=== PATIENT | male | born 1960 | race American Indian/Alaskan Native ===

== ENCOUNTER 2017-02-11 00:09 | Inpatient (IN) | payer MEDICARE ==
[2017-02-11 01:06] LABS: Anion Gap 20 mmol/L; BUN/Creatinine Ratio 21.11; Blood Urea Nitrogen 19 mg/dL (9-20); Carbon Dioxide 29 mmol/L (22-30); Chloride 98.6 mmol/L (98-107); Glucose 158 mg/dL (75-100); Potassium 4.5 mmol/L (3.6-5.0); Sodium 143 mmol/L (137-145)
[2017-02-11 01:11] LABS: Basophils % (Auto) 0.6 % (0.0-1.8); Eosinophils % (Auto) 3.3 % (0.0-4.3); Hematocrit 41.8 % (35.5-45.6); Hemoglobin 13.9 gm/dl (11.8-15.2); Mean Corpuscular HGB Conc 33 % (32-34); Mean Corpuscular Hemoglobin 30 pg (28-32); Mean Corpuscular Volume 89 fl (84-94); Platelet Count 124 K/mm3 (140-440); Red Blood Count 4.68 M/mm3 (3.65-5.03); Red Cell Distribution Width 13.5 % (13.2-15.2); White Blood Count 8.9 K/mm3 (4.5-11.0)
[2017-02-11] MEDS ORDERED: ASPIRIN PO ONE (06:06)
[2017-02-11] MEDS ORDERED: NITROSTAT SL ONE (06:06)
--- NOTE | 2017-02-11 06:09 | Emergency Department Report ---
ED Chest Pain HPI - General Chief Complaint: Chest Pain Stated Complaint: CHEST PAIN Time Seen by Provider: 02/11/17 05:59 Source: patient Mode of arrival: Stretcher Limitations: No Limitations - History of Present Illness Initial Comments: 56-year-old male presents emergency Department with chest pain that started since 9:30 PM last night. Patient describes pressure in the center of his chest. Does not radiate. He has shortness of breath with it. Has had a recent stress test in July 2016 for which he says was negative. Denies fevers chills nausea vomiting. -: Sudden Onset: during rest Pain Location: substernal Pain Radiation: none Severity: moderate Severity scale (0 -10): 6 Quality: tightness - Related Data Allergies Allergy/AdvReac Type Severity Reaction Status Date / Time No Known Allergies Allergy Unverified 02/11/17 00:20 Heart Score - HEART Score History: Moderately suspicious EKG: Non-specific Age: 45-65 Risk factors: 1-2 risk factors Troponin: < normal limit HEART Score: 4 ED Review of Systems ROS: Stated complaint: CHEST PAIN Other details as noted in HPI Comment: All other systems reviewed and negative Constitutional: denies: chills, fever Eyes: denies: eye pain, eye discharge, vision change ENT: denies: ear pain, throat pain Respiratory: shortness of breath. denies: cough, wheezing Cardiovascular: chest pain, dyspnea on exertion. denies: palpitations Endocrine: no symptoms reported Gastrointestinal: denies: abdominal pain, nausea, diarrhea Genitourinary: denies: urgency, dysuria Musculoskeletal: denies: back pain, joint swelling, arthralgia Skin: denies: rash, lesions Neurological: denies: headache, weakness, paresthesias Psychiatric: denies: anxiety, depression Hematological/Lymphatic: denies: easy bleeding, easy bruising ED Past Medical Hx - Past Medical History Previous Medical History?: Yes Hx Hypertension: Yes Hx CVA: Yes Hx Seizures: Yes Hx Psychiatric Treatment: Yes (bipolar) Additional medical history: cardiac cath (sometime in 2017) - Surgical History Past Surgical History?: Yes Hx Appendectomy: Yes Additional Surgical History: back surgery, jaw surgery - Social History Smoking Status: Current Every Day Smoker Substance Use Type: None ED Physical Exam - General Limitations: No Limitations General appearance: alert, in no apparent distress - Head Head exam: Present: atraumatic, normocephalic - Eye Eye exam: Present: normal appearance - ENT ENT exam: Present: mucous membranes moist - Neck Neck exam: Present: normal inspection - Respiratory Respiratory exam: Present: normal lung sounds bilaterally. Absent: respiratory distress - Cardiovascular Cardiovascular Exam: Present: regular rate, normal rhythm. Absent: systolic murmur, diastolic murmur, rubs, gallop - GI/Abdominal GI/Abdominal exam: Present: soft, normal bowel sounds - Rectal Rectal exam: Present: deferred - Extremities Exam Extremities exam: Present: pedal edema - Back Exam Back exam: Present: normal inspection - Neurological Exam Neurological exam: Present: alert, oriented X3 - Psychiatric Psychiatric exam: Present: normal affect, normal mood - Skin Skin exam: Present: warm, dry, intact, normal color. Absent: rash ED Course Vital Signs 02/11/17 02/11/17 02/11/17 00:20 03:00 04:00 Temperature 98.1 F Pulse Rate 89 91 H 83 Respiratory 20 16 14 Rate Blood Pressure 128/89 121/82 110/77 O2 Sat by Pulse 97 95 95 Oximetry 02/11/17 02/11/17 02/11/17 05:00 06:00 07:00 Temperature Pulse Rate 83 83 77 Respiratory 13 12 13 Rate Blood Pressure 121/80 120/78 127/82 O2 Sat by Pulse 94 94 96 Oximetry ED Medical Decision Making - Lab Data Result diagrams: 02/11/17 00:25 02/11/17 00:25 Laboratory Results - last 24 hr 02/11/17 02/11/17 02/11/17 00:25 00:25 03:22 WBC 8.9 RBC 4.68 Hgb 13.9 Hct 41.8 MCV 89 MCH 30 MCHC 33 RDW 13.5 Plt Count 124 L Lymph % (Auto) 49.6 H [place] % (Auto) 8.7 H Eos % (Auto) 3.3 Baso % (Auto) 0.6 Lymph # 4.4 [place] # 0.8 Eos # 0.3 Baso # 0.0 Seg Neutrophils % 37.8 L Seg Neutrophils # 3.4 Sodium 143 Potassium 4.5 Chloride 98.6 Carbon Dioxide 29 Anion Gap 20 BUN 19 Creatinine 0.9 Estimated GFR > 60 BUN/Creatinine Ratio 21.11 Glucose 158 H Calcium 10.0 Troponin T < 0.010 < 0.010 - EKG Data -: EKG Interpreted by Me - EKG Data 02/11/17 06:15 Normal sinus rhythm rate of 80 normal axis normal intervals and T-wave inversion in V3 and V4 T-wave flattening in V5 and V6 - Medical Decision Making 56-year-old male here with chest pain and shortness of breath. EKG with nonspecific changes plan chest x-ray aspirin nitroglycerin and reassess. Plan to admit for cardiac rule out. Discuss with hospitalist. Critical care attestation.: If time is entered above; I have spent that time in minutes in the direct care of this critically ill patient, excluding procedure time. ED Disposition Clinical Impression: Chest pain Disposition: OP ADMIT IP TO THIS HOSP Is pt being admited?: Yes Condition: Stable Instructions: Chest Pain (ED) Referrals: PRIMARY CARE, [Primary Care Provider] - 3-5 Days
--- NOTE | 2017-02-11 07:41 | Admit Criteria Form ---
Admission Criteria Documentation: CARDIOLOGY GRG Clinical Indications for Admission to Inpatient Care (Davis/check or initial the applicable condition/criteria) Hospital admission is needed for appropriate care of the patient because of ANY ONE of the following: [ ] I. Hemodynamic instability as indicated by ALL of the following (1)(2)(3) (4)(5)(6)(7)(8)(9)(10) [ ]a) Vital sign abnormality not readily corrected by appropriate treatment with 12-24 hours for ANY ONE: [ ]i) Hypotension that persists despite appropriate treatment (eg, volume repletion) [ ]ii) Tachycardiathat persists despite appropriate tx ( e.g., analgesia, fluids, sedation as indicated [ ]iii) Orthostatic vital sign changes that persists despite appropriate treatment (eg, volume repletion) [ ]b) Vital sign abnormailty that is severe indicated by ANY ONE of the following: [ ]i) Inadequate perfusion indicated by ANY ONE of the following: [ ] 1) Lactic acidosis (> 2 mmol/L) [ ] 2) New abnormal capillary refill (> 3 seconds) [ ] 3) Reduced urine output [ ] 4) New altered mental status [ ] 5) Myocardial Ischemia [ ] 6) Other metabolic acidosis (arterial pH <7.35 ) not otherwise explained. [ ]ii) Mean arterial pressure[A] less than 60 mm Hg [ ]iii) Mean arterial pressure[A] less than 70 mm Hg after 30 minutes of appropriate treatment (eg, fluid resuscitation) [ ]iv) Sustained heart rate greater than 120 beats per minute in adult or child 6 years or older[B] [ ]v) IV inotropic or vasopressor medication required to maintain adequate blood pressure or perfusion [ ] II. Severe heart failure as indicated by ANY ONE of the following(17)(18) [ ]a) Respiratory distress [ ]b) Hypotension [ ]c) Debilitating anasarca refractory to therapy (eg, tissue breakdown with infection)[C](19) [ ]d) Cardiac arrhythmias of immediate concern [ ]e) Myocardial ischemia [ ] III. Cardiac arrhythmias or findings of immediate concern indicated by ANY ONE of the following (21)(22): [ ] a) Heart rhythms that are inherently dangerous or unstable indicated by ANY ONE of the following (23)(24)(25): [ ] i) Resuscitated ventricular fibrillation or cardiac arrest [ ] ii) Ventricular escape rhythm [ ] iii) Sustained ventricular tachycardia (30 seconds or more of ventricular rhythm at greater than 100 beats per minute) [ ] iv) Nonsustained ventricular tachycardia and ANY ONE of the following: [ ] 1) Suspected cardiac ischemia as cause or consequence of ventricular tachycardia [ ] 2) Acute myocarditis [ ] b) Unstable cardiac conduction defects indicated by ANY ONE of the following(25)(26)(27) [ ] i) Type II second-degree atrioventricular block [ ]ii) Third-degree atrioventricular block [ ]iii) New-onset left bundle branch block with suspected myocardial ischemia [ ]c) Any heart rhythm and ANY ONE of the following (23)(24)(28)(29) (30) [ ] i) Continuous long-term ECG monitoring needed (e.g., initiation of drug requiring monitoring for more than 24 hours) [ ] ii) Patient has automatic implanted cardioverter defibrillator that is repeatedly firing, malfunctioning, or in need of immediate adjustment of settings beyond the scope of ambulatory or observation care [ ]d) Heart rhythms of concern due to ANY ONE of the following: [ ] i) Hypotension [ ] ii) Respiratory distress [ ] iii) Association with other significant symptoms (e.g., bradycardia with syncope or ongoing dizziness, supraventricular tachycardia with chest pain (28)(29)(31) [ ] IV. Monitoring for cardiac contusion beyond the scope of observation care needed [A](32)(33)(34) [ ] V. Surgical or device complication (e.g., valve replacement complication , ICD disfunction or pacemaker dysfunction) (49)(50)(51)(52)(53)(54) [ ] . Inpatient palliative care needed. [F](51)(52) Also use Inpatient Palliative Care Criteria [ ] VII. Nonbacterial thrombotic (marantic) endocarditis(43)(44)(55)(56)(57) [X ] VIII. Cardiology condition, symptom, or finding for which emergency and observation care has failed or are not considered appropriate. [ ] IX. Acute valvular disease requiring inpatient as indicated by ANY ONE of the following (40)(41) [ ]a) Acute valvular regurgitation (42) [ ]b) Noninfectious valvulitis (43)(44) [ ]c) Obstructive valve thrombosis (45)(46) [ ]d) Paravalvular leak(47)(48) [ ]e) Other significant valvular disorder remaining after emergency or observation level of care (as appropriate) [ ]X. Pericardial disease requiring inpatient treatment as indicated by ANY ONE of the following (35)(36)(37)(38) [ ]a) Suspected tamponade [ ]b) Hemopericardium [ ]c) Other significant pericardial disorder remaining after emergency or observation level of care (as appropriate)(39) [ ] XI. Cardiac ischemia beyond scope of emergency and observation care. [ ] XII. Cyanotic heart disease requiring inpatient care as indicated by 1 or more of the following(58)(59)(60): [ ]a) Acute onset of hypoxemia [ ]b) Exacerbation [ ] XIII. Hypertension requiring inpatient treatment as indicated by ANYONE of the following(11)(12)(13)(14): [ ]a) Severe hypertension (SBP greater than 180 mm Hg or DBP greater than 110 mm Hg, or greater than the 95th percentile for age, gender, and height in pediatric patients) that cannot be controlled (eg, to SBP less than 160 mm Hg and DBP less than 100 mm Hg) by emergency department or observation care treatment(15) [ ]b) Acute end organ damage secondary to hypertension (SBP greater than 140 mm Hg or DBP greater than 90 mm Hg) as indicated by ANYONE of the following: [ ] i) Hypertensive encephalopathy (eg, Altered mental status)(16) [ ] ii) Cerebral infarction [ ] iii) Intracranial hemorrhage [ ] iv) Myocardial ischemia or infarction [ ] v) Heart failure (eg, pulmonary edema) [ ] vi) Aortic dissection [ ] vii) Increased creatinine (new) with reduction of more than 50% in estimated glomerular filtration rate from baseline [ ] viii) Papilledema [ ] ix) Retinal hemorrhage [ ] x) Microangiopathic hemolytic anemia [ ] xi) Seizure [ ] xii) Other significant finding secondary to hypertension [ ] XIV. Complications of transplanted heart indicated by ANY ONE of the following(61): [ ]a) Acute graft rejection requiring inpatient management (eg, intravenous imunosuppression)(62)(63) [ ]b) Acute graft heart failure indicated by ANY ONE of the following(64): [ ] i) Hemodynamic instability [ ] ii) Cardiac arrhythmias of immediate concern [ ] iii) Pulmonary edema that is very severe (eg, mechanical ventilation needed, imminent or likely, need for 100% oxygen to keep oxygen saturation above 90%) [ ] iv) Pulmonary edema that is persistent as indicated by ALL of the following: [ ] 1) New need for oxygen therapy to keep oxygen saturation above 90 % (or increased FiO2 need from baseline) [ ] 2) Has not improved sufficiently with emergency department or observation care IV diuretics or other heart failure treatments[E]. [ ] iv) Altered mental status that is severe or persistent [ ] iv) Increased creatinine (new on laboratory test) with reduction of more than 50% in estimated glomerular filtration rate from baseline [ ] iv) Progressively (ongoing) rising creatinine (known from past laboratory test) with reduction of more than 25% in estimated glomerular filtration rate from baseline [ ] iv) Acute renal failure [ ] iv) Acute peripheral ischemia (eg, examination shows pulseless, cool, mottled, or cyanotic extremity) [ ] iv) Pulmonary artery catheter monitoring needed [ ] iv) Other sign or symptom of heart failure requiring inpatient treatment (ie, too severe or not responsive to outpatient and observation care treatment) [ ]c) Infection requiring inpatient management (eg, Hemodynamic instability, need for intravenous antimicrobial treatment)(66)(67)(68)(69)(70) [ ]d) Cardiac allograft vasculopathy requiring inpatient management (eg evidence of cardiacischemia)(71) [ ]e) Other complication of transplanted heart (eg, stroke, severe pulmonary hypertension, severe valvular dysfunction) requiring inpatient management(72) The original [employer] content created by [employer] has been revised. The portions of the content which have been revised are identified through the use of italic text or in bold, and [facility] has neither reviewed nor approved the modified material. All other unmodified content is copyright [employer] [employer]. Please see references footnoted in the original [facility] edition 2017 Admission Criteria Met: Yes
[2017-02-11] MEDS ORDERED: NITROSTAT SL PRN (07:54)
[2017-02-11] MEDS ORDERED: MORPHINE IV PRN (07:56)
[2017-02-11] MEDS ORDERED: ZOFRAN IV PRN (07:59)
[2017-02-11] MEDS ORDERED: TYLENOL PO PRN (08:00)
--- NOTE | 2017-02-11 09:14 | XRay Report ---
PORTABLE CHEST INDICATION: Chest pain. COMPARISON: None similar at this institution. FINDINGS: Portable, frontal chest radiograph demonstrates normal cardiomediastinal silhouette. Slightly crowded markings centrally. Mild left basilar atelectasis. Otherwise unremarkable lungs. Intact bones. EKG leads. CONCLUSION: Slight left basilar atelectasis, as described. Thank you for the opportunity to participate in this patient's care.
[2017-02-11] MEDS ORDERED: DULCOLAX PR PRN (10:00)
--- NOTE | 2017-02-11 10:08 | History and Physical Report ---
History of Present Illness Date of examination: 02/11/17 Date of admission: 02/11/2017 Chief complaint: Chest Pain History of present illness: Patient is a 56-year-old male with a past medical history of hypertension, diabetes mellitus , bipolar disorder and early Alzheimer who presents to emergency department for complaining of left sided chest pain. He states that the pain began yesterday intermittent left side chest pain. The pain was located over his substerna somewhat in the left epigastric area . Patient described as, pressure pain. The pain lasted for few hours and non-radiating. Also the patient did experience some tingling and numbness in his left arm after the pain ceased. Pain increased with palpation, there is no reliving factors. The painful episodes did not increase in intensity or severity during this time. The patient denies chest pain at present time. He denies shortness of breath, and vomiting during these episodes of pain. Patient reported nausea and diaphoresis including feeling clammy. He continued to have several episodes of the pain throughout the night, he decided to come to the emergency department. Patient has been in correction for the last two two weeks with [facility]. Patient had recent stress test and echocardiogram in [facility] in July 2016 for which he says was negative. Past History Past Medical History: diabetes, hypertension, hypothyroidism, other (bipolar) Past Surgical History: appendectomy, Other (back and jainism surgery) Social history: , lives with family. denies: smoking, alcohol abuse Family history: CAD, diabetes Medications and Allergies Allergies Allergy/AdvReac Type Severity Reaction Status Date / Time No Known Allergies Allergy Unverified 02/11/17 00:20 Home Medications Medication Instructions Recorded Confirmed Last Taken Type Divalproex Dr [DepaKOJAILENE DR] 1,000 mg PO QHS 02/11/17 02/11/17 02/10/17 History Docusate Calcium [Stool Softener] 240 mg PO BID 02/11/17 02/11/17 02/10/17 History Gabapentin [Neurontin] 300 mg PO BID 02/11/17 02/11/17 02/10/17 History Levothyroxine [Synthroid] 150 mcg PO QAM 02/11/17 02/11/17 02/10/17 History Losartan [Cozaar] 50 mg PO QAM 02/11/17 02/11/17 02/10/17 History Memantine HCl [Namenda Xr] 28 mg PO QHS 02/11/17 02/11/17 02/10/17 History Omeprazole Magnesium [PriLOSEC Otc] 20 mg PO QDAY 02/11/17 02/11/17 02/10/17 History Oxycodone HCl [Roxicodone TAB] 15 mg PO Q6H PRN 02/11/17 02/11/17 02/10/17 History Rivastigmine Tartrate 6 mg PO BID 02/11/17 02/11/17 02/10/17 History [Rivastigmine] Simvastatin [Zocor TAB] 20 mg PO QHS 02/11/17 02/11/17 02/10/17 History traZODone [Desyrel] 100 mg PO QHS 02/11/17 02/11/17 02/10/17 History Active Meds: Active Medications Acetaminophen (Tylenol) 650 mg PO Q4H PRN PRN Reason: Pain MILD(1-3)/Fever >100.5/SALAZAR Aspirin (Aspirin) 325 mg PO QDAY SABRINA Bisacodyl (Dulcolax) 10 mg [place] QDAY PRN PRN Reason: Constipation unrelieved by MOM Enoxaparin Sodium (Lovenox) 40 mg SUB-Q QDAY SABRINA Morphine Sulfate (Morphine) 2 mg IV Q4H PRN PRN Reason: Pain, Moderate (7-10) Nitroglycerin (Nitrostat) 0.4 mg SL .Q5MIN PRN PRN Reason: Chest Pain Ondansetron HCl (Zofran) 4 mg IV Q4H PRN PRN Reason: Nausea And Vomiting Review of Systems Constitutional: sweats, no weight loss, no weight gain, no fever, no chills Ears, nose, mouth and throat: no ear pain, no ear discharge, no tinnitis, no decreased hearing, no nose pain Cardiovascular: chest pain, no orthopnea, no palpitations, no syncope, no lightheadedness, no shortness of breath Respiratory: no cough, no cough with sputum, no excessive sputum Gastrointestinal: nausea, no abdominal pain, no vomiting, no diarrhea, no constipation Genitourinary Male: no flank pain, no discharge, no urinary frequency, no urinary hesitancy, no nocturia Rectal: no pain, no incontinence, no bleeding Musculoskeletal: no neck stiffness, no neck pain, no shooting arm pain, no arm numbness/tingling Integumentary: no pruritis, no redness, no sores, no wounds, no jaundice, no blisters Neurological: no paralysis, no weakness, no parathesias, no numbness Psychiatric: no anxiety, no memory loss, no change in sleep habits Endocrine: no cold intolerance, no heat intolerance Hematologic/Lymphatic: no easy bruising, no easy bleeding Allergic/Immunologic: no urticaria, no allergic rhinitis Exam - Constitutional Vitals: Temp Pulse Resp BP Pulse Ox 98.1 F 77 13 127/82 96 02/11/17 00:20 02/11/17 07:00 02/11/17 07:00 02/11/17 07:00 02/11/17 07:00 General appearance: Present: no acute distress - EENT Eyes: Present: PERRL ENT: hearing intact - Neck Neck: Present: supple - Respiratory Respiratory effort: normal Respiratory: bilateral: CTA - Cardiovascular Rhythm: regular Heart Sounds: Present: S1 & S2 - Extremities Extremities: no ischemia Peripheral Pulses: within normal limits - Abdominal General gastrointestinal: Present: soft, non-tender Male genitourinary: Present: deferred - Rectal Rectal Exam: deferred - Integumentary Integumentary: Present: clear, warm, dry - Musculoskeletal Musculoskeletal: strength equal bilaterally - Psychiatric Psychiatric: appropriate mood/affect - Neurologic Neurologic: CNII-XII intact - Allied Health Allied health notes reviewed: nursing Results - Labs CBC & Chem 7: 02/11/17 00:25 02/11/17 00:25 Labs: Laboratory Last Values WBC 8.9 K/mm3 (4.5-11.0) 02/11/17 00:25 RBC 4.68 M/mm3 (3.65-5.03) 02/11/17 00:25 Hgb 13.9 gm/dl (11.8-15.2) 02/11/17 00:25 Hct 41.8 % (35.5-45.6) 02/11/17 00:25 MCV 89 fl (84-94) 02/11/17 00:25 MCH 30 pg (28-32) 02/11/17 00:25 MCHC 33 % (32-34) 02/11/17 00:25 RDW 13.5 % (13.2-15.2) 02/11/17 00:25 Plt Count 124 K/mm3 (140-440) L 02/11/17 00:25 Lymph % (Auto) 49.6 % (13.4-35.0) H 02/11/17 00:25 [place] % (Auto) 8.7 % (0.0-7.3) H 02/11/17 00:25 Eos % (Auto) 3.3 % (0.0-4.3) 02/11/17 00:25 Baso % (Auto) 0.6 % (0.0-1.8) 02/11/17 00:25 Lymph # 4.4 K/mm3 (1.2-5.4) 02/11/17 00:25 [place] # 0.8 K/mm3 (0.0-0.8) 02/11/17 00:25 Eos # 0.3 K/mm3 (0.0-0.4) 02/11/17 00:25 Baso # 0.0 K/mm3 (0.0-0.1) 02/11/17 00:25 Seg Neutrophils % 37.8 % (40.0-70.0) L 02/11/17 00:25 Seg Neutrophils # 3.4 K/mm3 (1.8-7.7) 02/11/17 00:25 Sodium 143 mmol/L (137-145) 02/11/17 00:25 Potassium 4.5 mmol/L (3.6-5.0) 02/11/17 00:25 Chloride 98.6 mmol/L (98-107) 02/11/17 00:25 Carbon Dioxide 29 mmol/L (22-30) 02/11/17 00:25 Anion Gap 20 mmol/L 02/11/17 00:25 BUN 19 mg/dL (9-20) 02/11/17 00:25 Creatinine 0.9 mg/dL (0.8-1.5) 02/11/17 00:25 Estimated GFR > 60 ml/min 02/11/17 00:25 BUN/Creatinine Ratio 21.11 % 02/11/17 00:25 Glucose 158 mg/dL (75-100) H 02/11/17 00:25 Calcium 10.0 mg/dL (8.4-10.2) 02/11/17 00:25 Troponin T < 0.010 ng/mL (0.00-0.029) 02/11/17 06:12 - Imaging and Cardiology Chest x-ray: image reviewed (slightly left basilar atelectasis) Assessment and Plan Assessment and plan: Patient is a 56-year-old male with a past medical history of hypertension, diabetes mellitus , bipolar disorder and early Alzheimer who presents to emergency department for complaining of left sided chest pain. Chest Pain We will admit to telemetry floor. EKG normal sinus rate [address] elevation or T-wave inversion. We will get another EKG ordered for a changes that have taken since the first one obtained Negative cardiac enzyme X2 Start on aspirin Nitroglycerin when necessary Morphine ordered for pain Stress test ordered. Patient had recent stress test and echocardiogram in [facility] in July 2016 for which he says was negative. Diabetes mellitus Accu-Chek before meals and after Sliding-scale insulin/NovoLog Diabetic education Hypertension Continue on home antihypertensive medication IV hydralazine for SBP >160 Closely monitor blood pressure Bipolar disorder Patient on 10:13 with sitter on bedside Mental health consult Continue home meds Hypothyroidism Continue on Synthroid DVT prophylaxis Lovenox Advance Directives: Yes VTE prophylaxis?: Chemical Contraindication Mechanical VTE Prophylaxis: Treatment Not Indicated Plan of care discussed with patient/family: Yes
[2017-02-11] MEDS: LOVENOX SUB-Q SCH (11:14)
--- NOTE | 2017-02-11 12:49 | Consultation ---
History of Present Illness Consult date: 02/11/17 Consult reason: chest pain History of present illness: This is a 56yr old male whom was transferred to this hospital from [place] [facility] with complaints of chest pain. Patient reports chest pain at rest that progressively worsened associated with shortness of breath. Cycled cardiac enzymes are negative. No acute ischemic changes on his initial ECG. He was admitted for further evaluation with a persantine stress test today per primary team. Past History Past Medical History: diabetes, hypertension, hypothyroidism, other (bipolar) Past Surgical History: appendectomy, Other (back and muslim surgery) Social history: , lives with family. denies: smoking, alcohol abuse Family history: CAD, diabetes Medications and Allergies Allergies Allergy/AdvReac Type Severity Reaction Status Date / Time No Known Allergies Allergy Unverified 02/11/17 00:20 Home Medications Medication Instructions Recorded Confirmed Last Taken Type Divalproex Dr [DepaKOJAILENE DR] 1,000 mg PO QHS 02/11/17 02/11/17 02/10/17 History Docusate Calcium [Stool Softener] 240 mg PO BID 02/11/17 02/11/17 02/10/17 History Gabapentin [Neurontin] 300 mg PO BID 02/11/17 02/11/17 02/10/17 History Levothyroxine [Synthroid] 150 mcg PO QAM 02/11/17 02/11/17 02/10/17 History Losartan [Cozaar] 50 mg PO QAM 02/11/17 02/11/17 02/10/17 History Memantine HCl [Namenda Xr] 28 mg PO QHS 02/11/17 02/11/17 02/10/17 History Omeprazole Magnesium [PriLOSEC Otc] 20 mg PO QDAY 02/11/17 02/11/17 02/10/17 History Oxycodone HCl [Roxicodone TAB] 15 mg PO Q6H PRN 02/11/17 02/11/17 02/10/17 History Rivastigmine Tartrate 6 mg PO BID 02/11/17 02/11/17 02/10/17 History [Rivastigmine] Simvastatin [Zocor TAB] 20 mg PO QHS 02/11/17 02/11/17 02/10/17 History traZODone [Desyrel] 100 mg PO QHS 02/11/17 02/11/17 02/10/17 History Active Meds: Active Medications Acetaminophen (Tylenol) 650 mg PO Q4H PRN PRN Reason: Pain MILD(1-3)/Fever >100.5/SALAZAR Aspirin (Aspirin) 325 mg PO QDAY [facility] Bisacodyl (Dulcolax) 10 mg MO QDAY PRN PRN Reason: Constipation unrelieved by MOM Enoxaparin Sodium (Lovenox) 40 mg SUB-Q QDAY [facility] Last Admin: 02/11/17 11:14 Dose: 40 mg Morphine Sulfate (Morphine) 2 mg IV Q4H PRN PRN Reason: Pain, Moderate (7-10) Nitroglycerin (Nitrostat) 0.4 mg SL .Q5MIN PRN PRN Reason: Chest Pain Ondansetron HCl (Zofran) 4 mg IV Q4H PRN PRN Reason: Nausea And Vomiting Physical Examination Vital Signs Temp Pulse Resp BP Pulse Ox 98.1 F 89 20 128/89 97 02/11/17 00:20 02/11/17 00:20 02/11/17 00:20 02/11/17 00:20 02/11/17 00:20 General appearance: no acute distress Cardiac: Positive: Reg Rate and Rhythm Results 02/11/17 00:25 02/11/17 00:25 Assessment and Plan Chest pain, atypical small fixed apical wall defect without ischemia on MPI at [facility] 09/2016 80-90% diagonal branch stenosis recommended for medical therapy on LH at [facility] 10/2016 Hypertension Diabetes Suicidal ideation inpatient at [place]
[2017-02-11] MEDS: ROXICODONE PO PRN (20:59)
[2017-02-12] MEDS: ROXICODONE PO PRN ×2 (04:06→17:13)
[2017-02-12 04:47] LABS: Hematocrit 41.6 % (35.5-45.6); Hemoglobin 14.1 gm/dl (11.8-15.2); Mean Corpuscular HGB Conc 34 % (32-34); Mean Corpuscular Hemoglobin 30 pg (28-32); Mean Corpuscular Volume 89 fl (84-94); Platelet Count 119 K/mm3 (140-440); Red Blood Count 4.68 M/mm3 (3.65-5.03); Red Cell Distribution Width 13.5 % (13.2-15.2); White Blood Count 8.2 K/mm3 (4.5-11.0)
[2017-02-12 04:59] LABS: Anion Gap 17 mmol/L; BUN/Creatinine Ratio 18.75; Blood Urea Nitrogen 15 mg/dL (9-20); Calcium 9.5 mg/dL (8.4-10.2); Carbon Dioxide 29 mmol/L (22-30); Chloride 98.2 mmol/L (98-107); Glucose 120 mg/dL (75-100); Sodium 140 mmol/L (137-145)
[2017-02-12 06:04] LABS: Basophils % (Manual) 0 % (0.0-1.8); Blastocytes % (Manual) 0 %; Diff Status Complete; Platelet Estimate Consistent w Auto; RBC Morphology Normal
--- NOTE | 2017-02-12 08:07 | Discharge Summary ---
Providers - Providers Date of Admission: 02/11/17 07:56 Attending physician: KEATON SOTO MD 02/11/17 09:35 Consult to Mental Health [CONS] Routine Reason For Exam: on 1012 from [facility] consult to:: first beater Notified:: no Primary care physician: FISH BUTCHER Hospitalization Reason for admission: CHEST PAIN Condition: Stable Hospital course: Patient is a 56-year-old male with a past medical history of hypertension, diabetes mellitus , bipolar disorder and early Alzheimer who presents to emergency department for complaining of left sided chest pain. He states that the pain began yesterday intermittent left side chest pain. The pain was located over his substerna somewhat in the left epigastric area . Patient described as, pressure pain. The pain lasted for few hours and non-radiating. Also the patient did experience some tingling and numbness in his left arm after the pain ceased. Pain increased with palpation, there is no reliving factors. The painful episodes did not increase in intensity or severity during this time. The patient denies chest pain at present time. He denies shortness of breath, and vomiting during these episodes of pain. Patient reported nausea and diaphoresis including feeling clammy. He continued to have several episodes of the pain throughout the night, he decided to come to the emergency department. Patient has been in custodial for the last two two weeks with [facility]. Patient had recent stress test and echocardiogram in [facility] in July 2016 for which he says was negative. Patient presented with atypical chest pain, ACS was ruled out, negative cardiac enzymes, ECGs shows normal sinus rythm, CXR was wnl . Patient chest pain probably from musculoskeletal. Complete cardiac work-up recently performed in [facility] including a LHC showing 80-90% Diag disease recommended for medical therapy No further cardiac work-up needed. Medical therapy with ASA, lipitor, toprol Xl, amlodipine, lisinopril per Cardiology . Patient is clinically improved and no chest pain at present time. Patient advised to follow-up with his Cardiology and primary care provider. Discharge Diagnosis 1. CAD disease with 80% diagonal stenosis to be treated medically 2. Type 2 diabetes mellitus 3. Essential hypertension 4. Hypothyroidism 5. Hyperlipidemia 6. Bipolar disorder Disposition: DC/TX-65 PSY HOSP/PSY UNIT Time spent for discharge: 35 mins Core Measure Documentation - Palliative Care Palliative Care/ Comfort Measures: Not Applicable - Core Measures Any of the following diagnoses?: none - VTE Discharge Requirements Deep Vein Thrombosis/Pulmonary Embolism Present on Admission: No Exam - Constitutional Vitals: Temp Pulse Resp BP Pulse Ox 97.4 F L 76 20 104/78 97 02/12/17 07:36 02/12/17 07:36 02/12/17 07:36 02/12/17 07:36 02/12/17 07:36 General appearance: Present: no acute distress, well-nourished - EENT Eyes: Present: PERRL, EOM intact ENT: hearing intact, clear oral mucosa - Neck Neck: Present: supple, normal ROM - Respiratory Respiratory effort: normal Respiratory: bilateral: CTA - Cardiovascular Rhythm: regular Heart Sounds: Present: S1 & S2 - Extremities Extremities: no ischemia, pulses intact, pulses symmetrical Peripheral Pulses: within normal limits - Abdominal General gastrointestinal: Present: soft, non-tender, normal bowel sounds - Integumentary Integumentary: Present: clear, warm, dry - Musculoskeletal Musculoskeletal: strength equal bilaterally - Psychiatric Psychiatric: appropriate mood/affect, memory intact - Neurologic Neurologic: CNII-XII intact Plan Activity: advance as tolerated, fall precautions Diet: low fat Special Instructions: record daily BP diary Additional Instructions: follow with primary unix manager Follow up with: PRIMARY MD EDUARDO [Primary Care Provider] - 3-5 Days URIEL ANTHONY MD [Staff Physician] - 7 Days Prescriptions: AtorvaSTATin [Lipitor] 40 mg PO QHS #30 tablet amLODIPine [Norvasc] 2.5 mg PO QDAY #30 tablet Aspirin EC [Aspirin Enteric Coated TAB] 81 mg PO QDAY #30 tablet. Lisinopril [Zestril TAB] 2.5 mg PO QDAY #15 tablet Metoprolol Xl [Metoprolol SUCCINATE ER TAB] 25 mg PO QDAY #30 tablet Nitroglycerin [Nitrostat] 0.4 mg SL .Q5MIN PRN #30 tablet PRN Reason: Chest Pain
[2017-02-12] MEDS: LOVENOX SUB-Q SCH (09:25)
[2017-02-12] MEDS ORDERED: NORVASC PO SCH (10:00)
[2017-02-12] MEDS ORDERED: ZESTRIL PO SCH (10:00)
[2017-02-12] MEDS ORDERED: TOPROL XL PO SCH (10:00)
[2017-02-12] MEDS ORDERED: ASPIRIN PO SCH ×2 (10:00)
--- NOTE | 2017-02-12 10:14 | Progress Note ---
Assessment and Plan 1. CAD disease with 80% diagonal stenosis to be treated medically 2. Type 2 diabetes mellitus 3. Essential hypertension 4. Hypothyroidism 5. Hyperlipidemia 6. Bipolar disorder Plan. Cardiac-[place] stable continue present medication discharge planning as per PCP Subjective Date of service: 02/12/17 Principal diagnosis: CAD Interval history: No cardiac symptoms. Objective Vital Signs Temp Pulse Resp BP BP Pulse Ox 02/12/17 07:36 97.4 F L 76 20 104/78 97 02/12/17 04:00 97.9 F 80 20 121/77 95 02/12/17 00:00 98.9 F 74 20 104/74 97 02/11/17 20:55 98.5 F 96 H 22 118/79 93 02/11/17 20:51 118/79 02/11/17 17:15 78 02/11/17 13:34 103/66 02/11/17 13:29 103/66 02/11/17 12:33 68 94 02/11/17 11:00 70 10 L 103/66 95 02/11/17 10:51 84 - Physical Examination General: Appears Well, No Apparent Distress HEENT: Neck: Cardiac: Lungs: Neuro: Abdomen: /Rectal: Normal Prostate, No Masses Skin: Musculoskeletal: No Fluid Collection, No Pain, Normal Range of Motion Gait: Normal Gait Extremities: - Labs and Meds CBC 02/12/17 Range/Units 04:00 WBC 8.2 (4.5-11.0) K/mm3 RBC 4.68 (3.65-5.03) M/mm3 Hgb 14.1 (11.8-15.2) gm/dl Hct 41.6 (35.5-45.6) % Plt Count 119 L (140-440) K/mm3 Comprehensive Metabolic Panel 02/12/17 Range/Units 04:00 Sodium 140 (137-145) mmol/L Potassium 4.0 (3.6-5.0) mmol/L Chloride 98.2 (98-107) mmol/L Carbon Dioxide 29 (22-30) mmol/L BUN 15 (9-20) mg/dL Creatinine 0.8 (0.8-1.5) mg/dL Glucose 120 H (75-100) mg/dL Calcium 9.5 (8.4-10.2) mg/dL
--- NOTE | 2017-02-12 12:54 | Progress Note ---
Assessment and Plan Assessment and plan: Patient is a 56-year-old male with a past medical history of hypertension, diabetes mellitus , bipolar disorder and early Alzheimer who presents to emergency department for complaining of left sided chest pain. Chest Pain We will admit to telemetry floor. EKG normal sinus rate [address] elevation or T-wave inversion. No further cardiac testing required Continue on aspirin Nitroglycerin when necessary Morphine ordered for pain Stress test ordered. Patient had recent stress test and echocardiogram in [facility] in July 2016 for which he says was negative. Diabetes mellitus Accu-Chek before meals and after Sliding-scale insulin/NovoLog Diabetic education Hypertension Continue on home antihypertensive medication IV hydralazine for SBP >160 Closely monitor blood pressure Bipolar disorder Patient on 10:13 with sitter on bedside Mental health consult Continue home meds Hypothyroidism Continue on Synthroid Thrombocytopenia Stable DVT prophylaxis Lovenox Pending placement History Interval history: Patient seen and examined, in no acute distress. No further chest pain. Hospitalist Physical - Physical exam Narrative exam: VITAL SIGNS: Reviewed. GENERAL: The patient appeared well nourished and normally developed. Vital signs as documented. HEAD: No signs of head trauma. EYES: Pupils are equal. Extraocular motions intact. EARS: Hearing grossly intact. MOUTH: Oropharynx is normal. NECK: No adenopathy, no JVD. CHEST: Chest with clear breath sounds bilaterally. No wheezes, rales, or rhonchi. CARDIAC: Regular rate and rhythm. S1 and S2, without murmurs, gallops, or rubs. VASCULAR: No Edema. Peripheral pulses normal and equal in all extremities. ABDOMEN: Soft, without detectable tenderness. No sign of distention. No rebound or guarding, and no masses palpated. Bowel Sounds normal. MUSCULOSKELETAL: Good range of motion of all major joints. Extremities without clubbing, cyanosis or edema. NEUROLOGIC EXAM: Alert and oriented x 3. No focal sensory or strength deficits. Speech normal. Follows commands. PSYCHIATRIC: Mood normal. SKIN: No rash or lesions. - Constitutional Vitals: Temp Pulse Resp BP Pulse Ox 97.5 F L 89 20 118/82 95 02/12/17 11:37 02/12/17 11:55 02/12/17 11:37 02/12/17 11:37 02/12/17 11:37 General appearance: Present: no acute distress, well-nourished Results - Labs CBC & Chem 7: 02/12/17 04:00 02/12/17 04:00 Labs: Laboratory Last Values WBC 8.2 K/mm3 (4.5-11.0) 02/12/17 04:00 RBC 4.68 M/mm3 (3.65-5.03) 02/12/17 04:00 Hgb 14.1 gm/dl (11.8-15.2) 02/12/17 04:00 Hct 41.6 % (35.5-45.6) 02/12/17 04:00 MCV 89 fl (84-94) 02/12/17 04:00 MCH 30 pg (28-32) 02/12/17 04:00 MCHC 34 % (32-34) 02/12/17 04:00 RDW 13.5 % (13.2-15.2) 02/12/17 04:00 Plt Count 119 K/mm3 (140-440) L 02/12/17 04:00 Lymph % (Auto) 49.6 % (13.4-35.0) H 02/11/17 00:25 Coke % (Auto) 8.7 % (0.0-7.3) H 02/11/17 00:25 Eos % (Auto) 3.3 % (0.0-4.3) 02/11/17 00:25 Baso % (Auto) 0.6 % (0.0-1.8) 02/11/17 00:25 Lymph # 4.4 K/mm3 (1.2-5.4) 02/11/17 00:25 Coke # 0.8 K/mm3 (0.0-0.8) 02/11/17 00:25 Eos # 0.3 K/mm3 (0.0-0.4) 02/11/17 00:25 Baso # 0.0 K/mm3 (0.0-0.1) 02/11/17 00:25 Add Manual Diff Complete 02/12/17 04:00 Total Counted 100 02/12/17 04:00 Seg Neutrophils % Brown Stock Washer 02/12/17 04:00 Seg Neuts % (Manual) 34.0 % (40.0-70.0) L 02/12/17 04:00 Band Neutrophils % 0 % 02/12/17 04:00 Lymphocytes % (Manual) 54.0 % (13.4-35.0) H 02/12/17 04:00 Reactive Lymphs % (Man) 0 % 02/12/17 04:00 Monocytes % (Manual) 8.0 % (0.0-7.3) H 02/12/17 04:00 Eosinophils % (Manual) 4.0 % (0.0-4.3) 02/12/17 04:00 Basophils % (Manual) 0 % (0.0-1.8) 02/12/17 04:00 Metamyelocytes % 0 % 02/12/17 04:00 Myelocytes % 0 % 02/12/17 04:00 Promyelocytes % 0 % 02/12/17 04:00 Blast Cells % 0 % 02/12/17 04:00 Nucleated RBC % Not Reportable 02/12/17 04:00 Seg Neutrophils # 3.4 K/mm3 (1.8-7.7) 02/11/17 00:25 Seg Neutrophils # Man 2.8 K/mm3 (1.8-7.7) 02/12/17 04:00 Band Neutrophils # 0.0 K/mm3 02/12/17 04:00 Lymphocytes # (Manual) 4.4 K/mm3 (1.2-5.4) 02/12/17 04:00 Abs React Lymphs (Man) 0.0 K/mm3 02/12/17 04:00 Monocytes # (Manual) 0.7 K/mm3 (0.0-0.8) 02/12/17 04:00 Eosinophils # (Manual) 0.3 K/mm3 (0.0-0.4) 02/12/17 04:00 Basophils # (Manual) 0.0 K/mm3 (0.0-0.1) 02/12/17 04:00 Metamyelocytes # 0.0 K/mm3 02/12/17 04:00 Myelocytes # 0.0 K/mm3 02/12/17 04:00 Promyelocytes # 0.0 K/mm3 02/12/17 04:00 Blast Cells # 0.0 K/mm3 02/12/17 04:00 WBC Morphology Not Reportable 02/12/17 04:00 Hypersegmented Neuts Not Reportable 02/12/17 04:00 Hyposegmented Neuts Not Reportable 02/12/17 04:00 Hypogranular Neuts Not Reportable 02/12/17 04:00 Smudge Cells Not Reportable 02/12/17 04:00 Toxic Granulation Not Reportable 02/12/17 04:00 Toxic Vacuolation Not Reportable 02/12/17 04:00 Dohle Bodies Not Reportable 02/12/17 04:00 Pelger-Huet Anomaly Not Reportable 02/12/17 04:00 Terence Rods Not Reportable 02/12/17 04:00 Platelet Estimate Consistent w auto 02/12/17 04:00 Clumped Platelets Not Reportable 02/12/17 04:00 Plt Clumps, EDTA Not Reportable 02/12/17 04:00 Large Platelets Not Reportable 02/12/17 04:00 Giant Platelets Not Reportable 02/12/17 04:00 Platelet Satelliting Not Reportable 02/12/17 04:00 Plt Morphology Comment Not Reportable 02/12/17 04:00 RBC Morphology Normal 02/12/17 04:00 Dimorphic RBCs Not Reportable 02/12/17 04:00 Polychromasia Not Reportable 02/12/17 04:00 Hypochromasia Not Reportable 02/12/17 04:00 Poikilocytosis Not Reportable 02/12/17 04:00 Anisocytosis Not Reportable 02/12/17 04:00 Microcytosis Not Reportable 02/12/17 04:00 Macrocytosis Not Reportable 02/12/17 04:00 Spherocytes Not Reportable 02/12/17 04:00 Pappenheimer Bodies Not Reportable 02/12/17 04:00 Sickle Cells Not Reportable 02/12/17 04:00 Target Cells Not Reportable 02/12/17 04:00 Tear Drop Cells Not Reportable 02/12/17 04:00 Ovalocytes Not Reportable 02/12/17 04:00 Helmet Cells Not Reportable 02/12/17 04:00 [place] Bodies Not Reportable 02/12/17 04:00 [place] Rings Not Reportable 02/12/17 04:00 [place] Cells Not Reportable 02/12/17 04:00 Bite Cells Not Reportable 02/12/17 04:00 Crenated Cell Not Reportable 02/12/17 04:00 Elliptocytes Not Reportable 02/12/17 04:00 Acanthocytes (Spur) Not Reportable 02/12/17 04:00 Rouleaux Not Reportable 02/12/17 04:00 Hemoglobin C Crystals Not Reportable 02/12/17 04:00 Schistocytes Not Reportable 02/12/17 04:00 Malaria parasites Not Reportable 02/12/17 04:00 Ramin Bodies Not Reportable 02/12/17 04:00 Hem Pathologist Commnt No 02/12/17 04:00 Sodium 140 mmol/L (137-145) 02/12/17 04:00 Potassium 4.0 mmol/L (3.6-5.0) 02/12/17 04:00 Chloride 98.2 mmol/L (98-107) 02/12/17 04:00 Carbon Dioxide 29 mmol/L (22-30) 02/12/17 04:00 Anion Gap 17 mmol/L 02/12/17 04:00 BUN 15 mg/dL (9-20) 02/12/17 04:00 Creatinine 0.8 mg/dL (0.8-1.5) 02/12/17 04:00 Estimated GFR > 60 ml/min 02/12/17 04:00 BUN/Creatinine Ratio 18.75 % 02/12/17 04:00 Glucose 120 mg/dL (75-100) H 02/12/17 04:00 Calcium 9.5 mg/dL (8.4-10.2) 02/12/17 04:00 Troponin T < 0.010 ng/mL (0.00-0.029) 02/11/17 06:12
[2017-02-12] MEDS ORDERED: HABITROL TD SCH (18:00)
[2017-02-12 21:49] VITALS: BP 117/83
== END 2017-02-12 22:05 | DRG 313 ==
LOC: ED 00:09 → 4A 07:56 → 3A 02-12 14:39
PROVIDERS: ADMIT Internal Medicine; ATTEND Internal Medicine
DX: R07.89 Other chest pain (principal); R45.851 Suicidal ideations; I10 Essential (primary) hypertension; R56.9 Unspecified convulsions; F31.9 Bipolar disorder, unspecified; F17.210 Nicotine dependence, cigarettes, uncomplicated; I25.10 Atherosclerotic heart disease of native coronary artery without angina pectoris; E11.9 Type 2 diabetes mellitus without complications; E03.9 Hypothyroidism, unspecified; G30.9 Alzheimer's disease, unspecified; D69.6 Thrombocytopenia, unspecified; Z86.73 Personal history of transient ischemic attack (TIA), and cerebral infarction without residual deficits; Z90.49 Acquired absence of other specified parts of digestive tract; Z79.899 Other long term (current) drug therapy
CPT/HCPCS: 36415; 71010; 80048; 82962; 84484; 85007; 85025; 93005; 93010; 96372; 99406; A9270-GY; J1650